=== PATIENT | female | born 1995 | race Caucasian/White ===

== ENCOUNTER 2017-07-10 09:21 | Day surgery (SDC) | payer BC ==
[2017-07-09 12:04] VITALS: BMI 40.2
[2017-07-10 10:49] LABS: Hematocrit 38.1 % (36.0-47.0)
[2017-07-10] MEDS ORDERED: Fentanyl 250 MCG/5 ML VIAL ONE (11:27)
[2017-07-10] MEDS ORDERED: Ferric Subsulfate 8 ML BOT ONE (12:24)
[2017-07-10] MEDS ORDERED: Fentanyl 100 MCG/2 ML VIAL ONE (12:56)
[2017-07-10] MEDS ORDERED: Hydrocodone-Acetamin 15 ML UDCUP ONE (13:21)
[2017-07-10] MEDS ORDERED: Lidocaine 1% PF 5 ML VIAL ONE (16:08)
[2017-07-10] MEDS ORDERED: Ondansetron HCl/PF 4 MG/2 ML Vial ONE (16:08)
[2017-07-10] MEDS ORDERED: Dexamethasone 20 MG/5 ML VIAL ONE (16:08)
[2017-07-10] MEDS ORDERED: Propofol 200 MG/20 ML VIAL ONE (16:08)
--- NOTE | 2017-07-10 18:37 | OP ---
PREOPERATIVE DIAGNOSES: Chronic tonsillitis, obstructive tonsillar hypertrophy. POSTOPERATIVE DIAGNOSES: Chronic tonsillitis, obstructive tonsillar hypertrophy. PROCEDURE: Tonsillectomy over 12 years of age. PROCEDURE IN DETAIL: After consent was obtained, the patient was identified, brought to the operatin g room, and placed on the operating table in the supine position. General endotracheal anesthesia an d intravenous access was obtained and we proceeded with positioning the patient for oropharyngeal jenifer uma. Oropharyngeal exposure was obtained with a Lg-Zach mouth gag after a head drape was placed and secured with a towel clip. The Lg-Zach mouth gag was then suspended from the Dash tray and palatal elevation was achieved with a red rubber catheter. The right tonsil was addressed first. We used a curved Allis to grasp the tonsil and retract it medially as an anterior pillar incision was m jada with a #12 blade. The retrotonsillar fascial plane was then established and blunt dissection was performed with the suction cautery. Blood vessels were anticipated, identified, and cauterized as t hey were encountered. Ultimately, dissection was carried to the posterior tonsillar pillar mucosa wh ich was incised hemostatically, as well as the base of tongue connection. The tonsil was then passed off as a specimen and bleeding points within the tonsillar bed were cauter ized under direct visualization. We subsequently turned our attention to the contralateral side, whe re using a similar technique, a near identical procedure was performed. Again, the tonsil was graspe d and retracted medially with a curved Allis as an anterior pillar incision was made with a #12 blade . The retrotonsillar fascial plane was established and while the anterior pillar was retracted media lly, the hemostatic blunt dissection of the tonsil with a suction cautery was performed with blood ve ssels anticipated, identified, and cauterized as they were encountered. Again, dissection continued to the base of tongue and posterior tonsillar pillar mucosa which was incised in a hemostatic fashion . The tonsillar beds were then carefully inspected and bleeding points were identified and cauterize d with a suction cautery. After this portion of the procedure, hemostasis was completely obtained. The patient's oral cavity was copiously irrigated with iced saline and subsequently suctioned. We th en used the red rubber catheter to suction the gastric contents and the patient was subsequently arou sed, awakened, and extubated without difficulty and transported to the recovery room in stable condit ion. There were no complications.
== END 2017-07-10 14:38 | disposition home or self-care (01) ==
LOC: SDC 09:21
PROVIDERS: ATTEND Specialist
PROC: 0CTPXZZ Resection of Tonsils, External Approach (ICD-10-PCS; principal; 2017-07-10)
DX: J35.01 Chronic tonsillitis (principal); Z88.1 Allergy status to other antibiotic agents; Z90.89 Acquired absence of other organs; Z98.890 Other specified postprocedural states
CPT/HCPCS: 36415; 84703; 85014; 85018; 88304; 96374; J1100; J2001; J2405; J2704; J3010